=== PATIENT | male | born 1960 | race Caucasian/White ===

== ENCOUNTER 2018-11-18 18:52 | Observation (INO) | payer BC ==
[2018-11-18] MEDS ORDERED: ASPIRIN 81 MG CHEWABLE TABLET ONE (19:38)
[2018-11-18] MEDS ORDERED: NA CHLORIDE 0.9% 1,000 ML ONE (19:38)
[2018-11-18 19:59] LABS: Absolute Lymphocytes (CBC) 1.8 K/uL (0.7-4.9); Absolute Monocytes 0.5 K/uL (0.1-1.3); Absolute Neutrophil 2.9 K/uL (1.8-8.0); Basophils % 0.3 % (0-1.3); Eosinophils % 1.4 % (0-4.4); Lymphocytes % 33.8 % (15.3-44.8); MPV 10.1 fL (7.6-11.3); Monocytes % 9.1 % (3.3-12.3); RBC Red Blood Cell Count 5.29 M/uL (4.33-5.43)
--- NOTE | 2018-11-18 20:10 | ER ---
Nurse's Notes [facility] Name: Jacob Lopez Age: 58 yrs Sex: Male : 1960 Arrival Date: 11/18/2018 Time: 18:54 Bed 27 Private MD: Eric Mehta Diagnosis: Other chest pain;Chest pain, unspecified Presentation: 11/18 19:05 Presenting complaint: Patient states: left chest wall pain described at shooting pain ak1 since 1000 that is intermittent. pt c/o constant pain to left neck since 1000. pt denies N/V/D. pt denies SOB. Transition of care: patient was not received from another setting of care. Onset of symptoms was November 18, 2018. Risk Assessment: Do you want to hurt yourself or someone else? Patient reports no desire to harm self or others. Initial Sepsis Screen: Does the patient meet any 2 criteria? No. Patient's initial sepsis screen is negative. Does the patient have a suspected source of infection? No. Patient's initial sepsis screen is negative. Care prior to arrival: None. 19:05 Method Of Arrival: Wheelchair ak1 19:05 Acuity: KONRAD 3 ak1 Triage Assessment: 19:07 General: Appears in no apparent distress. Behavior is calm, cooperative. ak1 Historical: - Allergies: 19:07 NO NARCOTICS; ak1 - Home Meds: 19:07 Nexium Oral [Active]; ak1 - PMHx: 19:07 reflux; ak1 - PSHx: 19:07 RIGHT KNEE SX; ak1 - Immunization history:: Adult Immunizations unknown. - Social history:: Smoking status: Patient/guardian denies using tobacco, Patient/guardian denies using alcohol. - Ebola Screening: : No symptoms or risks identified at this time. - Family history:: not pertinent. Screenin:08 Abuse screen: Denies threats or abuse. Denies injuries from another. Nutritional ak1 screening: No deficits noted. Tuberculosis screening: No symptoms or risk factors identified. Fall Risk None identified. Assessment: 19:07 Pain: Complains of pain in left breast, left side of neck left side of neck. Quality of ak1 pain is described as shooting, gnawing, Pain began 1000 this morning. 22:19 Reassessment: No changes from previously documented assessment. Patient and/or family tl3 updated on plan of care and expected duration. Pain level reassessed. Patient is alert, oriented x 3, equal unlabored respirations, skin warm/dry/pink. awaiting transport to 219. Cardiovascular: Reports occasional sharp pain shoots up through chest Rhythm is sinus rhythm. Vital Signs: 19:04 BP 151 / 80; Pulse 88; Resp 16; Temp 98.0(TE); Pulse Ox 98% on R/A; Weight 108.86 kg ak1 (R); Height 5 ft. 8 in. (172.72 cm) (R); Pain 7/10; 22:19 BP 129 / 72; Pulse 66; Resp 18; Pulse Ox 97% ; tl3 19:04 Body Mass Index 36.49 (108.86 kg, 172.72 cm) ak1 ED Course: 18:54 Patient arrived in ED. mr 18:54 Eric Mehta MD is Private Physician. mr 18:59 Lavonne Fenton RN is Primary Nurse. tl3 18:59 Felton Joseph MD is Attending Physician. renee 19:05 Arm band placed on Patient placed in an exam room, on a stretcher, on bus driver/monitor, ak1 on pulse oximetry, Patient notified of wait time. EKG completed in triage. Results shown to MD. 19:06 Triage completed. ak1 19:07 Patient has correct armband on for positive identification. Placed in gown. Bed in low ak1 position. Call light in reach. Side rails up X 1. Pulse ox on. NIBP on. 19:07 Patient maintains SpO2 saturation greater than 95% on room air. ak1 19:23 Inserted saline lock: 20 gauge in right antecubital area, using aseptic technique. mg2 Blood collected. by SARAH Banerjee. 19:23 Initial lab(s) drawn, by ED staff, sent to lab. jp3 19:40 Urine collected: clean catch specimen, clear, lizeth colored, Amount Voided: 120mL. jp3 19:45 X-ray completed. Portable x-ray completed in exam room. Patient tolerated procedure jb2 well. 20:00 Lab(s) recollected, by me, sent to lab. jp3 20:05 Irina Espana MD is Hospitalizing Provider. [facility] 20:06 XRAY Chest (1 view) In Process Unspecified. EDMS 20:07 Radiology exam delayed due to lab results not completed at this time. (BUN/Creatinine). vm2 20:08 Lipase Sent. jp3 20:08 Troponin (emerg Dept Use Only) Sent. jp3 20:08 NT PRO-BNP Sent. jp3 20:09 Magnesium Sent. jp3 20:09 LFT's Sent. jp3 20:09 Basic Metabolic Panel Sent. jp3 20:17 Radiology exam delayed due to lab results not completed at this time. (BUN/Creatinine). vm2 21:[address] via wheelchair. vm2 21:11 CT completed. Patient tolerated procedure well. Patient moved back from CT. vm2 22:18 No provider procedures requiring assistance completed. Patient admitted, IV remains in tl3 place. Administered Medications: 19:47 Drug: Aspirin Chewable Tablet 162 mg Route: PO; mg2 20:17 Follow up: Response: No adverse reaction tl3 19:47 Drug: NS 0.9% 1000 ml Route: IV; Rate: 125 ml/hr; Site: right antecubital; mg2 22:22 Follow up: IV Status: Infusion continued upon admission; IV Intake: 400ml tl3 20:33 Drug: Lopressor (metoprolol TARTRATE) 50 mg Route: PO; tl3 20:34 Follow up: Response: No adverse reaction tl3 20:33 Drug: Lovenox 100 mg Route: Sub-Q; Site: abdomen; tl3 22:22 Follow up: Response: No adverse reaction tl3 20:33 Drug: Pepcid 20 mg Route: IVP; Site: right antecubital; tl3 20:33 Follow up: Response: No adverse reaction tl3 20:34 Follow up: Response: No adverse reaction tl3 Intake: 22:22 IV: 400ml; Total: 400ml. tl3 Outcome: 20:09 Decision to Hospitalize by Provider. renee 22:19 Admitted to Med/surg tl3 22:19 Admitted to Med/surg accompanied by tech, via wheelchair, with chart, Report called to Sil 22:19 Condition: stable 22:19 Instructed on the need for admit. 22:33 Patient left the ED. tl3 Signatures: Dispatcher [employer] EDTN Felton Joseph MD MD cha Rivera, Flakito Call Amber, RN RN ak1 Sabrina Oconnor 2 Lvaonne Fenton, RN RN tl3 Nas Wilde, RN RN mg2 Martinez Hernandez jp3
--- NOTE | 2018-11-18 20:10 | EDPHYS ---
Physician Documentation [facility] Name: Jacob Lopez Age: 58 yrs Sex: Male : 1960 Arrival Date: 11/18/2018 Time: 18:54 Bed 27 Private MD: Eric Mehta ED Physician Felton Joseph HPI: 11/18 19:59 This 58 yrs old Male presents to ER via Wheelchair with complaints of Chest renee Pain. 19:59 The patient or guardian reports chest pain that is located primarily in the anterior renee chest wall, left. Onset: today. The pain radiates to Associated signs and symptoms: The patient has no apparent associated signs or symptoms. The chest pain is described as sharp, stabbing. Duration: The patient or guardian reports multiple episodes, with no pattern. Modifying factors: The symptoms are alleviated by nothing. the symptoms are aggravated by nothing. Severity of pain: At its worst the pain was mild in the emergency department the pain is unchanged. The patient has not experienced similar symptoms in the past. Historical: - Allergies: 19:07 NO NARCOTICS; ak1 - Home Meds: 19:07 Nexium Oral [Active]; ak1 - PMHx: 19:07 reflux; ak1 - PSHx: 19:07 RIGHT KNEE SX; ak1 - Immunization history:: Adult Immunizations unknown. - Social history:: Smoking status: Patient/guardian denies using tobacco, Patient/guardian denies using alcohol. - Ebola Screening: : No symptoms or risks identified at this time. - Family history:: not pertinent. ROS: 19:59 Constitutional: Negative for fever, chills, and weight loss, Eyes: Negative for injury, renee pain, redness, and discharge, ENT: Negative for injury, pain, and discharge, Neck: Negative for injury, pain, and swelling, Respiratory: Negative for shortness of breath, cough, wheezing, and pleuritic chest pain, Abdomen/GI: Negative for abdominal pain, nausea, vomiting, diarrhea, and constipation, Back: Negative for injury and pain, : Negative for injury, bleeding, discharge, and swelling, MS/Extremity: Negative for injury and deformity, Skin: Negative for injury, rash, and discoloration, Neuro: Negative for headache, weakness, numbness, tingling, and seizure, Psych: Negative for depression, anxiety, suicide ideation, homicidal ideation, and hallucinations, Allergy/Immunology: Negative for hives, rash, and allergies, Endocrine: Negative for neck swelling, polydipsia, polyuria, polyphagia, and marked weight changes, Hematologic/Lymphatic: Negative for swollen nodes, abnormal bleeding, and unusual bruising. 19:59 Cardiovascular: Positive for chest pain, of the anterior aspect of left upper chest and left breast. Exam: 19:59 Constitutional: This is a well developed, well nourished patient who is awake, alert, renee and in no acute distress. Head/Face: Normocephalic, atraumatic. Eyes: Pupils equal round and reactive to light, extra-ocular motions intact. Lids and lashes normal. Conjunctiva and sclera are non-icteric and not injected. Cornea within normal limits. Periorbital areas with no swelling, redness, or edema. ENT: Nares patent. No nasal discharge, no septal abnormalities noted. Tympanic membranes are normal and external auditory canals are clear. Oropharynx with no redness, swelling, or masses, exudates, or evidence of obstruction, uvula midline. Mucous membranes moist. Neck: Trachea midline, no thyromegaly or masses palpated, and no cervical lymphadenopathy. Supple, full range of motion without nuchal rigidity, or vertebral point tenderness. No Meningismus. Chest/axilla: Normal chest wall appearance and motion. Nontender with no deformity. No lesions are appreciated. Respiratory: Lungs have equal breath sounds bilaterally, clear to auscultation and percussion. No rales, rhonchi or wheezes noted. No increased work of breathing, no retractions or nasal flaring. Abdomen/GI: Soft, non-tender, with normal bowel sounds. No distension or tympany. No guarding or rebound. No evidence of tenderness throughout. Back: No spinal tenderness. No costovertebral tenderness. Full range of motion. Male : Normal genitalia with no discharge or lesions. Skin: Warm, dry with normal turgor. Normal color with no rashes, no lesions, and no evidence of cellulitis. MS/ Extremity: Pulses equal, no cyanosis. Neurovascular intact. Full, normal range of motion. Neuro: Awake and alert, GCS 15, oriented to person, place, time, and situation. Cranial nerves II-XII grossly intact. Motor strength 5/5 in all extremities. Sensory grossly intact. Cerebellar exam normal. Normal gait. Psych: Awake, alert, with orientation to person, place and time. Behavior, mood, and affect are within normal limits. 19:59 Cardiovascular: Rate: tachycardic, Rhythm: regular, Pulses: Pulses are 4+ in bilateral radial, brachial, femoral, popliteal, posterior tibial and and dorsalis pedis arteries.. Heart sounds: normal, normal S1and S2, no S3 or S4, no murmur, no rub, no gallop, Edema: is not appreciated, JVD: is not appreciated. Vital Signs: 19:04 BP 151 / 80; Pulse 88; Resp 16; Temp 98.0(TE); Pulse Ox 98% on R/A; Weight 108.86 kg ak1 (R); Height 5 ft. 8 in. (172.72 cm) (R); Pain 7/10; 22:19 BP 129 / 72; Pulse 66; Resp 18; Pulse Ox 97% ; tl3 19:04 Body Mass Index 36.49 (108.86 kg, 172.72 cm) ak1 MDM: 18:59 Patient medically screened. [facility] 19:59 Data reviewed: vital signs, nurses notes, lab test result(s), EKG, radiologic studies, [facility] CT scan, plain films. 11/18 19:20 Order name: Basic Metabolic Panel; Complete Time: 21:15 mg2 11/18 19:20 Order name: CBC with Diff; Complete Time: 21:15 mg2 11/18 19:20 Order name: LFT's; Complete Time: 21:15 mg2 11/18 19:20 Order name: Magnesium; Complete Time: 21:15 mg2 11/18 19:20 Order name: NT PRO-BNP; Complete Time: 21:15 mg2 11/18 19:20 Order name: PT-INR; Complete Time: 21:15 mg2 11/18 19:20 Order name: Troponin (emerg Dept Use Only); Complete Time: 21:15 mg2 11/18 19:48 Order name: Lipase; Complete Time: 21:15 EDMS 11/18 20:23 Order name: Urine Dipstick--Ancillary (enter results); Complete Time: 21:15 mw2 11/18 20:43 Order name: Basic Metabolic Panel EDMS 11/18 20:43 Order name: Basic Metabolic Panel EDMS 11/18 20:43 Order name: CBC with Automated Diff EDMS 11/18 20:43 Order name: CBC with Automated Diff EDMS 11/18 19:20 Order name: XRAY Chest (1 view); Complete Time: 21:15 mg2 11/18 19:20 Order name: EKG; Complete Time: 19:21 mg2 11/18 19:58 Order name: CT Chest For PE Angio renee 11/18 20:42 Order name: CONS Physician Consult EDAK 11/18 20:42 Order name: Heart Healthy EDAK 11/18 20:42 Order name: Echo with Doppler EDAK 11/18 20:42 Order name: EKG Electrocardiogram EDAK 11/18 20:43 Order name: Troponin I EDAK 11/18 20:43 Order name: Troponin I EDAK 11/18 20:43 Order name: Troponin I EDAK 11/18 22:02 Order name: CT EDAK 11/18 19:20 Order name: Cardiac monitoring; Complete Time: 19:20 mg2 11/18 19:20 Order name: EKG - Nurse/Tech; Complete Time: 19:20 mg2 11/18 19:20 Order name: IV Saline Lock; Complete Time: 19:20 mg2 11/18 19:20 Order name: Labs collected and sent; Complete Time: 19:20 mg2 11/18 19:20 Order name: O2 Per Protocol; Complete Time: 19:22 mg2 11/18 19:20 Order name: O2 Sat Monitoring; Complete Time: 19:22 mg2 11/18 20:42 Order name: EKG Electrocardiogram EDMS Administered Medications: 19:47 Drug: Aspirin Chewable Tablet 162 mg Route: PO; mg2 20:17 Follow up: Response: No adverse reaction tl3 19:47 Drug: NS 0.9% 1000 ml Route: IV; Rate: 125 ml/hr; Site: right antecubital; mg2 22:22 Follow up: IV Status: Infusion continued upon admission; IV Intake: 400ml tl3 20:33 Drug: Lopressor (metoprolol TARTRATE) 50 mg Route: PO; tl3 20:34 Follow up: Response: No adverse reaction tl3 20:33 Drug: Lovenox 100 mg Route: Sub-Q; Site: abdomen; tl3 22:22 Follow up: Response: No adverse reaction tl3 20:33 Drug: Pepcid 20 mg Route: IVP; Site: right antecubital; tl3 20:33 Follow up: Response: No adverse reaction tl3 20:34 Follow up: Response: No adverse reaction tl3 Disposition: 11/18/18 20:09 Hospitalization ordered by Irina Espana for Inpatient Admission. Preliminary diagnosis are Other chest pain, Chest pain, unspecified. - Bed requested for Telemetry/MedSurg (observation). - Status is Inpatient Admission. tl3 - Condition is Stable. - Problem is new. - Symptoms have improved. UTI on Admission? No Signatures: Dispatcher [employer] EDAK Felton Joseph MD MD cha Krenek, Amber RN RN ak1 Lainey Cruz RN RN cg Lavonne Fenton, SARAH RN tl3 Nas Wilde RN RN mg2 Corrections: (The following items were deleted from the chart) 19:48 19:23 LIPASE+C.LAB.BRZ ordered. [facility] 21:23 20:09 Hospitalization Ordered by Irina Espana MD for Inpatient Admission. Preliminary cg diagnosis is Other chest pain; Chest pain, unspecified. Bed requested for Telemetry/MedSurg (observation). Status is Inpatient Admission. Condition is Stable. Problem is new. Symptoms have improved. UTI on Admission? No. renee 21:25 21:23 11/18/2018 20:09 Hospitalization Ordered by Irina Espana MD for Inpatient cg Admission. Preliminary diagnosis is Other chest pain; Chest pain, unspecified. Bed requested for Telemetry/MedSurg (observation). Status is Inpatient Admission. Condition is Stable. Problem is new. Symptoms have improved. UTI on Admission? No. cg 22:33 21:25 11/18/2018 20:09 Hospitalization Ordered by Irina Espana MD for Inpatient tl3 Admission. Preliminary diagnosis is Other chest pain; Chest pain, unspecified. Bed requested for Telemetry/MedSurg (observation). Status is Inpatient Admission. Condition is Stable. Problem is new. Symptoms have improved. UTI on Admission? No. cg
--- NOTE | 2018-11-18 20:20 | RAD REPORT ---
EXAM DESCRIPTION: RAD - Chest Single View - 11/18/2018 8:01 pm CLINICAL HISTORY: Left-sided chest pain COMPARISON: None. TECHNIQUE: AP portable chest image was obtained 1948 hours . FINDINGS: Lungs are clear. Heart and vasculature are normal. No measurable pleural effusion and no p neumothorax. No acute bony abnormality seen. No acute aortic findings suspected. IMPRESSION: No acute cardiopulmonary process.
[2018-11-18] MEDS ORDERED: ENOXAPARIN 100 MG/ML SYR SQ ONE (20:29)
[2018-11-18] MEDS ORDERED: METOPROLOL TAR 50 MG TAB ONE (20:29)
[2018-11-18] MEDS ORDERED: FAMOTIDINE 20 MG/2 ML VIAL IV ONE (20:29)
[2018-11-18] MEDS ORDERED: ALPRAZOLAM 0.25 MG TABLET PO PRN (20:38)
[2018-11-18] MEDS ORDERED: ACETAMINOPHEN 500 MG TAB PO PRN (20:38)
[2018-11-18] MEDS ORDERED: MORPHINE 4 MG/ML SYR IV PRN (20:38)
[2018-11-18 20:40] LABS: ALT/SGPT 60 U/L (12-78); AST/SGOT 24 U/L (15-37); Albumin 3.9 g/dL (3.4-5.0); Alkaline Phosphatase 55 U/L (45-117); BUN Blood Urea Nitrogen 14 mg/dL (7-18); Bicarbonate 25 mmol/L (21-32); Bilirubin Direct 0.2 mg/dL (0-0.2); Bilirubin Total 0.6 mg/dL (0.2-1.0); Glucose Level 97 mg/dL (74-106); Lipase 133 U/L (73-393); Magnesium 2.1 mg/dL (1.8-2.4); NT PRO-BNP 30 pg/mL (<125); Potassium 3.8 mmol/L (3.5-5.1); Protein, Total 6.7 g/dL (6.4-8.2); Sodium Level 142 mmol/L (136-145); Troponin (Emerg Dept Use Only) < 0.02 ng/mL (0.0-0.045)
[2018-11-18 20:41] LABS: Urine Blood NEGATIVE (NEG); Urine Glucose NEGATIVE (NEG); Urine Protein NEGATIVE (NEG); Urine Specific Gravity 1.025 (1.005-1.030); Urine pH 6.5 (5.0-7.0)
[2018-11-18] MEDS: METOPROLOL TAR 50 MG TAB PO SCH (21:00)
--- NOTE | 2018-11-18 21:59 | RAD REPORT ---
EXAM DESCRIPTION: CT - Chest For Pe Angio - 11/18/2018 9:14 pm CLINICAL HISTORY: Left-sided chest pain, shortness of breath COMPARISON: None. TECHNIQUE: Dynamically enhanced 3 mm thick images of the chest were obtained during administration o f approximately 150mL Isovue 370 IV contrast. Coronal and oblique MIP reconstruction images were gene rated and reviewed. Exam utilizes a protocol to evaluate the pulmonary arterial tree. All CT scans are performed using dose optimization technique as appropriate and may include automated exposure control or mA/KV adjustment according to patient size. FINDINGS: No pulmonary emboli are identified. The aorta as imaged shows no acute or suspicious finding. No pericardial thickening or effusion. No focal mass or infiltrate of the lung parenchyma. No pleural effusion or pleural thickening. No mediastinal or hilar suspicious masses. No chest wall masses or abnormal axillary lymphadenopathy. IMPRESSION: No pulmonary emboli identified. No other significant or suspicious findings.
[2018-11-18 23:04] VITALS: BMI 38.1
[2018-11-19 06:21] LABS: Absolute Lymphocytes (CBC) 1.6 K/uL (0.7-4.9); Absolute Monocytes 0.4 K/uL (0.1-1.3); Basophils % 0.5 % (0-1.3); Eosinophils % 1.9 % (0-4.4); Lymphocytes % 38.9 % (15.3-44.8); MPV 9.9 fL (7.6-11.3); Monocytes % 10.8 % (3.3-12.3); RBC Red Blood Cell Count 5.24 M/uL (4.33-5.43)
[2018-11-19 06:31] LABS: Potassium 4.1 mmol/L (3.5-5.1)
[2018-11-19] MEDS ORDERED: REGADENOSON 0.4 MG/5 ML SYR IV ONE (08:04)
[2018-11-19] MEDS ORDERED: ASPIRIN EC 81 MG TAB PO SCH (09:00)
[2018-11-19] MEDS ORDERED: ENOXAPARIN 40 MG/0.4 ML SQ SCH (09:00)
[2018-11-19] MEDS: METOPROLOL TAR 50 MG TAB PO SCH (09:00)
--- NOTE | 2018-11-19 12:22 | RAD REPORT ---
EXAM DESCRIPTION: NM - Rest Stress Cardiac Imaging - 11/19/2018 12:17 pm CLINICAL HISTORY: CP Chest pain. COMPARISON: No comparisons TECHNIQUE: The patient was administered approximately 10mCi of Tc 99m Sestamibi prior to resting SPE CT imaging of the heart. The patient was then administered approximately 30 mCi of Tc 99m Sestamibi f ollowing exercise or pharmacologic stress. Multiplanar SPECT images were reviewed. FINDINGS: No stress induced ischemic defect is seen to suggest stress induced ischemia. No fixed def ect is seen to suggest hibernating myocardium or scarred myocardium. The end diastolic volume is 105 ml, the end systolic volume is 37 ml, and the ejection fraction is 65 %. IMPRESSION: No stress induced ischemia.
[2018-11-19 17:03] VITALS: O2SAT 96
--- NOTE | 2018-11-19 17:11 | EKG ---
Test Date: 2018-11-18 Test Time: 19:03:10 Link Trainer Teacher: TL MEASUREMENT RESULTS: Intervals: Rate: 82 ND: 176 QRSD: 102 QT: 366 QTc: 427 [place]: P: 47 ND: 176 QRS: -35 T: 29 INTERPRETIVE STATEMENTS: Normal sinus rhythm Left axis deviation Abnormal ECG Compared to ECG 01/19/2012 11:31:00 Left-axis deviation now present Electronically Signed On 11-19-18 17:07:24 PIERCING MACHINE OPERATOR by Timmy Fierro
--- NOTE | 2018-11-19 17:49 | CON ---
Date of Consultation: 11/18/2018 The patient admitted to Dr. Espana's service on 11/18/2018. Reason For Consultation: Chest pain. History Of Present Illness: Mr. Lopez is a 58-year-old white male with only a past medical history of gastroesophageal reflux disease. He is a nonsmoker, has a very distant family history for heart d isease. Does not have diabetes, hypertension, or dyslipidemia. He has a history of gastroesophageal reflux disease, but apparently his symptoms at this time were a little bit different as they were lo nger, sharp, stabbing, lasted for almost 2 days. Has been under a lot of stress from many deaths in the family. Denied PND, orthopnea, pedal edema, palpitations, or syncope. Allergies: INCLUDE MORPHINE AND HYDROCODONE. Review of Systems: Negative. Social History: Negative. Family History: Negative. Medications: At home include Nexium. Physical Examination: Vital Signs: Stable. He was afebrile. HEENT: Negative. Neck: Supple without any bruit, lymphadenopathy, JVD, or thyromegaly. Chest: Clear to auscultation and percussion. Cardiac: Revealed a regular rhythm and rate without any murmurs, gallops, or rubs. Abdomen: Benign. Extremities: Revealed no clubbing, cyanosis, or edema. Diagnostic Data: All normal. Impression And Plan: Atypical chest pain, still most likely gastroesophageal reflux disease in miguel hester, but it was a different character. His weight is his only risk factors. He has a distant family h istory. Has been under a lot of stress. Echocardiogram and Lexiscan are pending. We will see what those show before we make any final decisions. STACIA/MARA Voice ID: [id number] Report ID: [id number]
[2018-11-19 18:25] VITALS: BP 121/64; TEMP 97.2
--- NOTE | 2018-11-19 19:23 | P.SSS ---
Patient History Date of Service: 11/19/18 Reason for admission: Chest pain History of Present Illness: Patient is a 58-year-old gentleman who came to the hospital with chest pain. Pain was mainly the sternal region. There was some radiation to the left arm. Patient has some nausea and lightheadedness. He came into the hospital for further evaluation. In the ER his initial troponin were negative. His EKG did not reveal any acute abnormality. He does have multiple risk factors. He is a patient of the [facility]. If he needs any intervention he is willing to go to the [facility]. We will do a stress test this morning and evaluate for any further abnormalities. Allergies hydrocodone [From Vicodin] Adverse Reaction (Verified 11/18/18 22:56) Nausea/Vomiting morphine Adverse Reaction (Verified 11/18/18 22:56) Nausea/Vomiting NO NARCOT Allergy (Uncoded 03/21/16 22:40) Unknown Home Medications: Esomeprazole Mag Trihydrate [Nexium] 40 mg PO BEDTIME 11/18/18 - Past Medical/Surgical History Has patient received pneumonia vaccine in the past: No Diabetic: No -: gastric reflux -: right knee sx - Social History Smoking Status: Never smoker Alcohol use: No CD- Drugs: No Place of Residence: Home Review of Systems 10-point ROS is otherwise unremarkable Physical Examination - Vital Signs Temperature: 97.2 F Blood Pressure: 121/64 Pulse: 69 Respirations: 17 Pulse Ox (%): 98 - Physical Exam General: Alert, In no apparent distress, Oriented x3 HEENT: Atraumatic, PERRLA, Mucous membr. moist/pink, EOMI, Sclerae nonicteric Neck: Supple, 2+ carotid pulse no bruit, No LAD, Without JVD or thyroid abnormality Respiratory: Clear to auscultation bilaterally, Normal air movement Cardiovascular: Regular rate/rhythm, Normal S1 S2 Gastrointestinal: Normal bowel sounds, No tenderness Musculoskeletal: No tenderness Integumentary: No rashes Neurological: Normal gait, Normal speech, Normal strength at 5/5 x4 extr, Normal tone, Normal affect Lymphatics: No axilla or inguinal lymphadenopathy - Studies Laboratory Data (last 24 hrs) 11/18/18 19:30: PT 11.8, INR 1.00 11/18/18 19:30: WBC 5.2, Hgb 16.4, Hct 49.0, Plt Count 155 01/28/19 19:30: Sodium 142, Potassium 3.8, BUN 14, Creatinine 1.08, Glucose 97, Magnesium 2.1, Total Bilirubin 0.6, AST 24, ALT 60, Alkaline Phosphatase 55, Lipase 133 11/18/18 19:23: Lipase Cancelled Treatment Summary: Patient was admitted for chest pain rule out. Serial troponins and EKG was done. Troponins were negative x3. Cardiology was consulted, an echocardiogram and a stress test were done. The echocardiogram was normal and the stress test was also normal. Patient was cleared for discharge from the specialists. He was instructed to follow up with his primary care physician in 1 week. At the time of discharge, patient was symptom free, hemodynamically stable, alert oriented x3. He was ambulating without any concerns tolerating a regular diet. - Disposition Condition: GOOD Consultations: Cardiology Patient Discharge Instructions: Please follow up with your primary care physician in 1 week. Please return to the emergency room for worsening symptoms Diet: AHA Activity: Ad frank Time Spent Managing Pts Care (In Minutes): 55
--- NOTE | 2018-11-19 20:27 | P.HP ---
Certification for Inpatient Patient admitted to: Observation With expected LOS: <2 Midnights Patient will require the following post-hospital care: None Practitioner: I am a practitioner with admitting privileges, knowledge of patient current condition, hospital course, and medical plan of care. Services: Services provided to patient in accordance with Admission requirements found in Title 42 Section 412.3 of the Code of Federal Regulations Patient History Date of Service: 11/18/18 Reason for admission: chest pain History of Present Illness: Patient is a 58-year-old gentleman who came to the hospital with chest pain. Pain was mainly the sternal region. There was some radiation to the left arm. Patient has some nausea and lightheadedness. He came into the hospital for further evaluation. In the ER his initial troponin were negative. His EKG did not reveal any acute abnormality. He does have multiple risk factors. He is a patient of the [facility]. If he needs any intervention he is willing to go to the [facility]. We will do a stress test this morning and evaluate for any further abnormalities. Allergies hydrocodone [From Vicodin] Adverse Reaction (Verified 11/18/18 22:56) Nausea/Vomiting morphine Adverse Reaction (Verified 11/18/18 22:56) Nausea/Vomiting NO NARCOT Allergy (Uncoded 03/21/16 22:40) Unknown Home Medications: Esomeprazole Mag Trihydrate [Nexium] 40 mg PO BEDTIME 11/18/18 - Past Medical/Surgical History Has patient received pneumonia vaccine in the past: No Diabetic: No -: gastric reflux -: right knee sx - Family History Father Family History: Reviewed- Non-Contributory - Social History Smoking Status: Never smoker Alcohol use: No CD- Drugs: No Place of Residence: Home Review of Systems 10-point ROS is otherwise unremarkable Physical Examination - Vital Signs Temperature: 97.2 F Blood Pressure: 121/64 Pulse: 69 Respirations: 17 Pulse Ox (%): 98 - Physical Exam General: Alert, In no apparent distress, Oriented x3 HEENT: Atraumatic, PERRLA, Mucous membr. moist/pink, EOMI, Sclerae nonicteric Neck: Supple, 2+ carotid pulse no bruit, No LAD, Without JVD or thyroid abnormality Respiratory: Clear to auscultation bilaterally, Normal air movement Cardiovascular: Regular rate/rhythm, Normal S1 S2, No murmurs Gastrointestinal: Normal bowel sounds, Soft and benign, Non-distended, No tenderness Musculoskeletal: No clubbing, No swelling, No tenderness Integumentary: No rashes Neurological: Normal gait, Normal speech, Normal strength at 5/5 x4 extr, Normal tone, Sensation intact, Cranial nerves 3-12 intact, Normal affect Lymphatics: No axilla or inguinal lymphadenopathy - Studies Laboratory Data (last 24 hrs) 11/18/18 19:30: Sodium 142, Potassium 3.8, BUN 14, Creatinine 1.08, Glucose 97, Magnesium 2.1, Total Bilirubin 0.6, AST 24, ALT 60, Alkaline Phosphatase 55, Lipase 133 Assessment & Plan - Problems (Diagnosis) (1) Chest pain, rule out acute myocardial infarction Status: Acute - Plan 1. Serial troponins and EKG 2. Cardiology consultation 3. Echocardiogram 4. Anti-platelet therapy, anti coagulation, beta-kade, statin, and O2 as needed 5. IV morphine for pain 6. Nitro p.r.n. Discharge Plan: Home Plan to discharge in: 24 Hours - Advance Directives Does patient have a Living Will: No Does patient have a Durable POA for Healthcare: No - Code Status/Comfort Care Code Status Assessed: Yes Code Status: Full Code Critical Care: No Time Spent Managing PTS Care (In Minutes): 50
--- NOTE | 2018-11-20 07:17 | TREADPHA ---
DX: CHEST PAIN Date of Study: 11/19/2018 Ht: 5 8 Wt: 251 lb 0 oz Consulting Physician: VANGIE MEDICATIONS: TYLENOL, ASPIRIN, XANAX, LOPRESSOR, LOVENOX HISTORY: 58 YEAR OLD MALE WITH COMPLAINTS OF CHEST PAIN. HISTORY OF NON-SMOKER AND NON-DRINKER. PHYSICIAL EXAMINATION: RESTING B.P.: 136/90 RESTING H.R.: 65 RESTING EKG: NORMAL SINUS RHYTHM, LEFT ATRIAL ENLARGEMENT PROTOCOL: LEXISCAN EXERCISE TIME: 3:30 B.P. AT PEAK STRESS: 148/84 IMPRESSION: LEXISCAN INJECTED, FOLLOWED BY CARDIOLITE PER PROTOCOL. SEE NUCLEAR MEDICINE REPORT. NO SUPRAVENTRICULAR TACHYCARDIA. NO VENTRICULAR TACHYCARDIA. NO PREMATURE ATRIAL COMPLEXES. NO PREMATURE VENTRICULAR COMPLEXES. PATIENT REPORTED NO CHEST PAIN OR TIGHTNESS THROUGHOUT PROCEDURE AND DURING RECOVERY.
--- NOTE | 2018-11-20 07:20 | ECHO ---
HEIGHT: 5 ft 8 in WEIGHT: 251 lb 0 oz DATE OF STUDY: 11/19/[address]: Irina Espana MD 2-DIMENSIONAL: YES M.MODE: YES DOPPLER: YES COLOR FLOW: YES TDS: YES PORTABLE: DEFINITY: BUBBLE STUDY: DIAGNOSIS: CONGESTIVE HEART FAILURE CARDIAC HISTORY: CATHERIZATION: NO SURGERY: NO PROSTHETIC VALVE: NO PACEMAKER: NO MEASUREMENTS (cm) DIASTOLIC (NORMALS) SYSTOLIC (NORMALS) IVSd 1.1 (0.6-1.2) LA Diam 3.6 (1.9-4.0) LVEF 51% LVIDd 3.4 (3.5-5.7) LVIDs 2.6 (2.0-3.5) %FS 25% LVPWd 1.1 (0.6-1.2) Ao Diam 3.0 (2.0-3.7) 2 DIMENSIONAL ASSESSMENT: RIGHT ATRIUM: NORMAL LEFT ATRIUM: NORMAL RIGHT VENTRICLE: NORMAL LEFT VENTRICLE: NORMAL TRICUSPID VALVE: NORMAL MITRAL VALVE: NORMAL PULMONIC VALVE: NORMAL AORTIC VALVE: NORMAL PERICARDIAL EFFUSION: NONE AORTIC ROOT: NORMAL LEFT VENTRICULAR WALL MOTION: NORMAL DOPPLER/COLOR FLOW: MILD TRICUSPID REGURGITATION COMMENTS: NORMAL LEFT VENTRICULAR SIZE AND FUNCTION. MILD TRICUSPID REGURGITATION. NO WALL MOTION ABNORMALITY. TECHNOLOGIST: KUNAL PARRA
== END 2018-11-19 17:46 | disposition home or self-care (01) ==
LOC: ER 18:52 → ERHOLD 20:54 → 2ND 22:30
PROVIDERS: ADMIT Family Medicine; ATTEND Hospitalist
DX: R07.9 Chest pain, unspecified (principal)
CPT/HCPCS: 36415; 71045; 71275; 78452; 80048; 80076; 81003; 83690; 83735; 83880; 84484; 85025; 85610; 93005; 93017; 93306; 96361; 96372; 96374; 99285; A9500; G0378; J1650; J2785; J7030; Q9967

== ENCOUNTER 2022-06-28 16:35 | Emergency (ER) | payer BC ==
--- OUTSIDE RECORDS SUMMARY | 2022-06-28 16:38 | XMS REPORT | Continuity of Care Document ---
:1960 Author Organization [facility] t Address [address] [place] [address] Care Team Providers Name Role Phone Asked, No Pcp Primary Care Physician Unavailable Desmond Rodriguez Attending Clinician Unavailable Candido ESTEBAN, Talya Briggs Attending Clinician [phone] MD TALYA TARIQ Attending Clinician Unavailable MD TALYA TARIQ Admitting Clinician Unavailable Payers Payer Name Policy Type Policy Number Effective Date Expiration Date S ource Problems This patient has no known problems. Allergies, Adverse Reactions, Alerts This patient has no known allergies or adverse reactions. Social History Social Habit Start Date Stop Date Quantity Comments Source Sex Assigned At [birth year] [facility] 00:00:00 00:00:00 Smoking Status Start Date Stop Date Source Tobacco smoking consumption unknown [facility] Medications Ordered Filled Start Stop Current Ordering Indication Dosage Frequency Signature Comments Components Source Medication Medication Date Date Medication? Clinician (SIG) Name Name albuterol 2020- No 2{puff} Q4H Inhale 2 Methodi (PROAIR 01-[address] HFA) 90 00:00: 04:59 every 4 Hospit a mcg/actuati 00 :00 (four) l on inhaler hours as needed for wheezing for up to 30 days. methylPREDN No follow Met hodi ISolone 01-16 04-[address] (MEDROL 00:00: 04:59 directions Hos augustine DOSEPAK) 4 00 :00 l mg tablet Vital Signs Vital Name Observation Time Observation Value Comments Source Systolic blood 2021-01-17 00:15:00 120 mm[Hg] [facility] pressure Diastolic blood 2021-01-17 00:15:00 65 mm[Hg] [facility] pressure Heart rate 2021-01-17 00:15:00 96 /min [facility] Respiratory rate 2021-01-17 00:15:00 25 /min [facility] Oxygen saturation in 2021-01-17 00:15:00 96 /min [facility] Arterial blood by Pulse oximetry Body temperature 2021-01-16 22:32:00 37.11 Lacy [facility] Body height 2021-01-16 22:32:00 172.7 cm [facility] Procedures Procedure Date / Time Performing Clinician Source Performed CT ANGIOGRAM PE CHEST 2021-01-16 23:53:16 Talya Tariq [facility] XR CHEST 1 VW PORTABLE 2021-01-16 22:59:41 Talay Tariq [facility] COVID-19 QUALITATIVE 2021-01-16 22:54:00 [facility] CBC WITH PLATELET AND 2021-01-16 22:54:00 Talya Tariq [facility] DIFFERENTIAL [facility] COMPREHENSIVE METABOLIC 2021-01-16 22:54:00 Talya Tariq [facility] PANEL [place] ESTIMATED GFR 2021-01-16 22:54:00 Talya Tariq [facility] MANUAL DIFFERENTIAL 2021-01-16 22:54[facility] 2021-01-16 22:50:00 Talya Tariq [facility] ANAEROBIC [facility] BLOOD CULTURE, AEROBIC & 2021-01-16 22:40:00 Talya Tariq [facility] ANAEROBIC [facility] Plan of Care Planned Activity Planned Date Details Comments Source Future Scheduled 2022-06-21 HEPATITIS B VACCINES [facility] Test 03:44:47 (1 of 3 - 3-dose series) [code = HEPATITIS B VACCINES (1 of 3 - 3-dose series)] Future Scheduled 2022-06-21 COVID-19 VACCINE (#1) [facility] Test 03:44:47 [code = COVID-19 VACCINE (#1)] Future Scheduled 2022-06-[address] [facility] Test 03:44:47 (procedure) [code = 967597544] Future Scheduled 2022-06-[address] [facility] Test 03:44:47 [code = COLONOSCOPY SCREENING] Future Scheduled 2022-06-21 SHINGLES VACCINES (1 [facility] Test 03:44:47 of 2) [code = SHINGLES VACCINES (1 of 2)] Future Scheduled 2022-06-21 INFLUENZA VACCINE [facility] Test 03:44:47 [code = INFLUENZA VACCINE] Future Scheduled 2021-08-31 COVID-19 VACCINE (1) [facility] Test 09:04:42 [code = COVID-19 VACCINE (1)] Future Scheduled 2021-08-[address] [facility] Test 09:04:42 (procedure) [code = [id number]] Future Scheduled 2021-08-[address] [facility] Test 09:04:42 [code = COLONOSCOPY SCREENING] Future Scheduled 2021-08-31 [facility]ACCINES [facility] Test 09:04:42 (#1) [code = SHINGLES VACCINES (#1)] Future Scheduled 2021-08-31 [facility]ZA VACCINE [facility] Test 09:04:42 [code = INFLUENZA VACCINE] Encounters Start End Encounter Admission Attending Care Care Encounter Source Date/Time Date/Time Type Type Clinicians Facility Department ID 2021-11-30 Outpatient Rodriguez, [facility] [id number] Common 15:52:[address] [facility] 2021-11-18 Outpatient Rodriguez, [facility] [id number] Common 09:31:[address] [facility] 2021-11-16 Outpatient Rodriguez, [facility] [id number] Common 14:38:[address] [facility] 2021-11-16 Outpatient Rodriguez, [facility] [id number] Common 14:38:[address] [facility] 2021-01-16 2021-01-16 Emergency Schemidt, 1.2.840.1 [id number] Methodi 17:29:00 19:22:[address] [place] 3.430.2.7 Hospit a .[id number] l .8 2021-01-16 2021-01-16 Travel 1.2.840.1 [id number] Methodi 00:00:00 00:00:[address] 3.430.2.7 0.2.7.3.698 Ho spita .[id number] 084.8 l .8 Results Test Description Test Time Test Comments Results Result Comments Source SARS-CoV-2 (COVID-19) RNA [Presence] in Respiratory sp ecimen by 2021-01-16 22:45:59 RUBA with probe detection Test Item Value Reference Range Interpretation Comme nts SARS-CoV-2 (COVID-19) RNA [Presence] in Respiratory Detected No t-Detected specimen by RUBA with probe detection (test code = 62408-8)
[2022-06-28 17:19] LABS: Absolute Lymphocytes (CBC) 1.5 K/uL (0.7-4.9); Hematocrit 46.7 % (39.6-49.0); Lymphocytes % 26.7 % (15.3-44.8); MCV 91.9 fL (80-100); MPV 8.9 fL (7.6-11.3); RBC Red Blood Cell Count 5.08 M/uL (4.33-5.43)
[2022-06-28 17:22] LABS: Protime INR 0.96
[2022-06-28 17:38] LABS: Bilirubin Direct 0.1 mg/dL (0-0.2); Bilirubin Total 0.5 mg/dL (0.2-1.0); Magnesium 2.2 mg/dL (1.8-2.4); Potassium 3.8 mmol/L (3.5-5.1); Protein, Total 6.9 g/dL (6.4-8.2); Troponin High Sensitivity 4.7 pg/mL (<58.9)
--- NOTE | 2022-06-28 17:49 | RAD REPORT ---
EXAM DESCRIPTION: RAD - Chest Single View - 06/28/2022 5:26 pm CLINICAL HISTORY: CHEST PAIN Chest pain. COMPARISON: Chest Single View dated 11/18/2018 FINDINGS: Portable technique limits examination quality. The lungs are grossly clear. The heart is normal in size. No displaced fractures. IMPRESSION: No acute intrathoracic process suspected.
--- NOTE | 2022-06-28 18:41 | EDPHYS ---
Physician Documentation [facility] Name: Jacob Lopez Age: 61 yrs Sex: Male : 1960 Arrival Date: 06/28/2022 Time: 16:38 Bed Waiting Private MD: Michael [facility] ED Physician Enrique Garces HPI: 06/28 16:52 This 61 yrs old Male presents to ER via Ambulatory with complaints of Chest Pain. pm1 16:52 The patient or guardian reports chest pain that is located primarily in the anterior pm1 aspect of left upper chest. Onset: chest pain onset last week similar in nature but not as intense that lasted for thirty minutes and then returned today around 1400 that has been constant, sharp 6/10 pain. The pain does not radiate. Associated signs and symptoms: Pertinent positives: neck pain, Pertinent negatives: abdominal pain, cough, diaphoresis, dizziness, headache, nausea, palpitations, shortness of breath, syncope, vomiting. The chest pain is described as sharp. Duration: The patient or guardian reports a single episode, that is still ongoing, and unchanged. Severity of pain: in the emergency department the pain is a 6 / 10. The patient has experienced a previous episode, last week. The patient has not recently seen a physician, the patient's primary care provider is Dr. Rodriguez. Historical: - Allergies: 16:50 NO NARCOTICS; kb3 - Home Meds: 16:50 Nexium Oral [Active]; kb3 - PMHx: 16:50 reflux; Migraine; kb3 - Immunization history:: Adult Immunizations up to date, Client reports receiving the 2nd dose of the Covid vaccine, Last tetanus immunization: up to date. - Social history:: Smoking status: Patient denies any tobacco usage or history of. ROS: 16:52 Constitutional: Negative for fever, chills, and weight loss. pm1 16:52 Respiratory: Negative for shortness of breath, cough, wheezing, and pleuritic chest pain, Abdomen/GI: Negative for abdominal pain, nausea, vomiting, diarrhea, and constipation, Back: Negative for injury and pain, MS/Extremity: Negative for injury and deformity, Skin: Negative for injury, rash, and discoloration. 16:52 Neck: Positive for of the pain to back of neck. 16:52 Cardiovascular: Positive for chest pain, Negative for edema, palpitations. 16:52 All other systems are negative. Exam: 16:52 Constitutional: This is a well developed, well nourished patient who is awake, alert, pm1 and in no acute distress. Head/Face: Normocephalic, atraumatic. 16:52 Back: No spinal tenderness. No costovertebral tenderness. Full range of motion. Skin: Warm, dry with normal turgor. Normal color with no rashes, no lesions, and no evidence of cellulitis. MS/ Extremity: Pulses equal, no cyanosis. Neurovascular intact. Full, normal range of motion. 16:52 Eyes: Exam is negative for acute changes, Periorbital structures: appear normal, no acute changes, Pupils: no acute changes, Extraocular movements: no acute changes. 16:52 ENT: Exam is negative for acute changes, Mouth: no acute changes, Lips: normal, moist, Oral mucosa: normal, pink and intact, moist. 16:52 Cardiovascular: Exam negative for acute changes, Rate: normal, Rhythm: regular, Pulses: no pulse deficits are appreciated, Heart sounds: normal, normal S1and S2, Edema: is not appreciated. 16:52 Respiratory: Exam negative for acute changes, respiratory distress, shortness of breath, Breath sounds: are clear throughout. 16:52 Abdomen/GI: Inspection: obese Palpation: abdomen is soft and non-tender, in all quadrants. 16:52 Neuro: Exam negative for acute changes, Orientation: is normal, Mentation: is normal, Motor: is normal, moves all fours. Vital Signs: 16:44 BP 146 / 87; Pulse 89; Resp 20; Temp 98.1; Pulse Ox 95% ; Weight 115.67 kg; Height 5 kb3 ft. 8 in. (172.72 cm); 16:44 Body Mass Index 38.77 (115.67 kg, 172.72 cm) kb3 MDM: 16:56 Data reviewed: vital signs. pm1 17:15 Patient medically screened. pm1 18:38 Refusal of service: The patient/guardian displays adequate decision making capability pm1 and despite a detailed discussion of alternatives, benefits, risks, and consequences refuses: Admission to the hospital for further work-up and treatment, Patient wants to go home now. Patient offered repeat troponin but he does not want to wait for repeat troponin either. Explained to patient typically with chest presentation chest pain and his age, from a risk stratification standpoint I would admit him for at least observation for chest pain or further treatment and evaluation in the hospital. Patient still wants to go home. Patient's is present while I been discussing with him. 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 06/28 16:52 Order name: Basic Metabolic Panel; Complete Time: 18:29 pm06/28 16:52 Order name: CBC with Diff; Complete Time: 17:30 pm06/28 16:52 Order name: LFT's; Complete Time: 18:29 pm06/28 16:52 Order name: Magnesium; Complete Time: 18:29 pm06/28 16:52 Order name: NT PRO-BNP; Complete Time: 18:29 pm06/28 16:52 Order name: PT-INR; Complete Time: 17:30 pm06/28 16:52 Order name: Troponin HS; Complete Time: 18:29 pm06/28 16:52 Order name: XRAY Chest (1 view); Complete Time: 18:29 pm06/28 16:52 Order name: EKG; Complete Time: 16:53 pm06/28 16:52 Order name: Cardiac monitoring pm06/28 16:52 Order name: EKG - Nurse/Tech; Complete Time: 17:19 pm06/28 16:52 Order name: IV Saline Lock; Complete Time: 17:14 pm06/28 16:52 Order name: Labs collected and sent; Complete Time: 17:14 pm06/28 16:52 Order name: O2 Per Protocol pm06/28 16:52 Order name: O2 Sat Monitoring pm1 EC:00 Rate is 85 beats/min. Rhythm is regular, Normal Sinus Rhythm. IL interval is normal. pm1 QRS interval is normal. QT interval is normal. No Q waves. T waves are Normal. No ST changes noted. Clinical impression: Normal sinus rhythm, left axis deviation, pulmonary disease pattern, abnormal EKG. Administered Medications: 20:09 Not Given (Patient Eloped): Aspirin Chewable Tablet 324 mg PO once; 81 mg tablets x 4 kb3 Disposition: 23:12 Co-signature as Attending Physician, Enrique Garces DO I was immediately available on-site ms3 in the Emergency Department for consultation in the care of the patient. . Disposition Summary: 06/28/22 18:40 Discharge Ordered Location: Home pm1 Problem: new pm1 Symptoms: are unchanged pm1 Condition: Undetermined pm1 Diagnosis - Chest pain, unspecified pm1 Followup: pm1 - With: Emergency Department - When: As needed - Reason: Worsening of condition Followup: pm1 - With: Private Physician - When: 2 - 3 days - Reason: Recheck today's complaints, Continuance of care, Re-evaluation by your physician Discharge Instructions: - Discharge Summary Sheet pm1 - Nonspecific Chest Pain, Adult pm1 Forms: - Medication Reconciliation Form pm1 - Thank You Letter pm1 - Antibiotic Education pm1 - Prescription Opioid Use pm1 Signatures: Dispatcher [employer] EDMS Jonathon Washington, BOX SEALING INSPECTOR BOX SEALING INSPECTOR pm1 Enrique Garces DO DO ms3 Jennifer Morley, RN RN kb3
--- NOTE | 2022-06-28 18:41 | ER ---
Nurse's Notes [facility] Name: Jacob Lopez Age: 61 yrs Sex: Male : 1960 Arrival Date: 06/28/2022 Time: 16:38 Bed Waiting Private MD: Desmond Rodriguez Diagnosis: Chest pain, unspecified Presentation: 06/28 16:44 Chief complaint: Patient states: Pt reports mid-sternal CP that radiates into right kb3 neck. Reports the tension in his neck is so bad he feels like he might get a migraine. Coronavirus screen: Vaccine status: Patient reports receiving the 2nd dose of the covid vaccine. Client denies travel out of the [place] in the last 14 days. Ebola Screen: Patient negative for fever greater than or equal to 101.5 degrees Fahrenheit, and additional compatible Ebola Virus Disease symptoms Patient denies exposure to infectious person. Patient denies travel to an Ebola-affected area in the 21 days before illness onset. No symptoms or risks identified at this time. Initial Sepsis Screen: Does the patient meet any 2 criteria? No. Patient's initial sepsis screen is negative. Does the patient have a suspected source of infection? No. Patient's initial sepsis screen is negative. Risk Assessment: Do you want to hurt yourself or someone else? Patient reports no desire to harm self or others. Onset of symptoms was June 28, 2022 at 14:00. 16:44 Method Of Arrival: Ambulatory 3 16:44 Acuity: KONRAD 3 kb3 Triage Assessment: 16:44 General: Appears in no apparent distress. Behavior is calm, cooperative. Pain: kb3 Complains of pain in anterior aspect of left upper chest and mid-sternal area Pain radiates to base of the skull Pain currently is 6 out of 10 on a pain scale. Quality of pain is described as. Cardiovascular: Reports chest pain. Historical: - Allergies: 16:50 NO NARCOTICS; kb3 - Home Meds: 16:50 Nexium Oral [Active]; kb3 - PMHx: 16:50 reflux; Migraine; kb3 - Immunization history:: Adult Immunizations up to date, Client reports receiving the 2nd dose of the Covid vaccine, Last tetanus immunization: up to date. - Social history:: Smoking status: Patient denies any tobacco usage or history of. Screenin:20 Abuse screen: Denies threats or abuse. Denies injuries from another. Nutritional kb3 screening: No deficits noted. Tuberculosis screening: No symptoms or risk factors identified. Fall Risk None identified. Assessment: 18:20 General: Pt states feeling better and that chest pain has resolved at this time. kb3 Reports he would like to go home and follow up with PCP and cardiology tomorrow. Jonathon FRENCH BINDING FOLDER notified. 19:00 General: Jonathon reviewed lab results reviewed with pt. Advised follow up with PCP and kb3 cardiology in a.m. PT states understanding of all discussed.. Vital Signs: 16:44 BP 146 / 87; Pulse 89; Resp 20; Temp 98.1; Pulse Ox 95% ; Weight 115.67 kg; Height 5 kb3 ft. 8 in. (172.72 cm); 16:44 Body Mass Index 38.77 (115.67 kg, 172.72 cm) kb3 ED Course: 16:38 Patient arrived in ED. mr 16:38 Desmond Rodriguez DO is Private Physician. mr 16:44 Arm band placed on right wrist. kb3 16:46 Triage completed. kb3 16:47 Jonathon Washington NP is PHCP. pm1 16:47 Enrique Garces DO is Attending Physician. pm1 17:00 EKG completed in triage. Results shown to . kb3 17:14 Inserted saline lock: 22 gauge in left wrist, using aseptic technique. Blood collected. zm 17:14 Basic Metabolic Panel Sent. zm 17:14 CBC with Diff Sent. zm 17:14 LFT's Sent. zm 17:14 Magnesium Sent. zm 17:14 NT PRO-BNP Sent. zm 17:14 PT-INR Sent. zm 17:14 Troponin HS Sent. zm 17:28 XRAY Chest (1 view) In Process Unspecified. EDMS 18:20 Patient has correct armband on for positive identification. kb3 18:20 No provider procedures requiring assistance completed. Patient maintains SpO2 kb3 saturation greater than 95% on room air. 19:05 IV discontinued, intact, bleeding controlled, No redness/swelling at site. kb3 Administered Medications: 20:09 Not Given (Patient Eloped): Aspirin Chewable Tablet 324 mg PO once; 81 mg tablets x 4 kb3 Medication: 18:20 VIS not applicable for this client. kb3 Outcome: 18:40 Discharge ordered by . pm1 19:05 Discharged to home ambulatory. kb3 19:05 Condition: stable 19:05 Discharge instructions given to patient, Instructed on discharge instructions, follow up and referral plans. Demonstrated understanding of instructions, follow-up care. 20:09 Patient left the ED. kb3 Signatures: Dispatcher [employer] Patricia Duke PadminiJonathon NP FRENCH BINDING FOLDER pm1 Jesica Cordova Kelly, RN RN kb3
[2022-06-28] MEDS ORDERED: ASPIRIN 81 MG CHEWABLE TABLET ONE (19:43)
[2022-06-28 22:07] VITALS: BP 146/87; TEMP 98.1; O2SAT 95
--- NOTE | 2022-06-29 10:52 | EKG ---
Test Date: 2022-06-28 Test Time: 16:57:14 Health Social Work Professor: ABRAHAM MEASUREMENT RESULTS: Intervals: Rate: 85 MA: 188 QRSD: 88 QT: 376 QTc: 447 [place]: P: 44 MA: 188 QRS: -40 T: 38 INTERPRETIVE STATEMENTS: Normal sinus rhythm Left axis deviation Pulmonary disease pattern Abnormal ECG Compared to ECG 11/18/2018 19:03:10 No significant changes Electronically Signed On 06-29-22 10:50:12 CDT by Timmy Fierro
== END 2022-06-28 20:09 | disposition home or self-care (01) ==
LOC: ER 16:35
DX: R07.89 Other chest pain (principal); M54.2 Cervicalgia; Z88.5 Allergy status to narcotic agent
CPT/HCPCS: 36415; 71045; 80048; 80076; 83735; 83880; 84484; 85025; 85610; 93005; 99284